=== PATIENT | female | born 1980 | race Caucasian/White ===

== ENCOUNTER 2018-09-01 19:28 | Emergency (ER) | payer BC, OTHER ==
[~2018-09-01] VITALS: Wt 83.7 kg
[~2018-09-01 19:28] MED LIST: WEIGHT LOSS MED
[2018-09-01] MEDS ORDERED: MED4DP PO (22:35)
[2018-09-01] MEDS ORDERED: NAPR-985 PO (22:35)
[2018-09-01] MEDS ORDERED: AMOX1TAB10 PO (22:35)
[2018-09-01] MEDS ORDERED: PSEU-79 PO (22:35)
[2018-09-01 22:48] VITALS: BP 126/81; PULSE 89; RESP 20
--- NOTE | 2018-09-02 00:42 | ERD ---
ER Documentation Chief Complaint Chief Complaint L SIDE FACIAL SWELLING X'S 2 DAYS/ DYSURIA X'S 2 DAYS HPI 37-year-old female presenting with left-sided facial swelling. Patient states is been going on for the last 2 days and she has some mild pressure with congestion over the sinuses. Patient is also experiencing some to the lymph nodes as well as some dental pain. Patient has not taken medications for symptoms. She denies any fevers. Denies other medical problems. NKDA. Surgical history: tubal ligation. Social history denies ROS All systems reviewed and are negative except as per history of present illness. Medications Home Meds Active Scripts Naproxen* (Naprosyn*) 500 Mg Tablet, 500 MG PO BID PRN for PAIN AND/OR INFLAMMATION, #30 TAB Prov:JAKUB SORENSEN PA-C 09/01/18 Pseudoephedrine Hcl* (Suphedrin*) 30 Mg Tablet, 30 MG PO Q6 PRN for CONGESTION, #30 TAB Prov:JAKUB SORENSEN PA-C 09/01/18 Methylprednisolone* (Medrol* DOSE PACK) 4 Mg/Dose-Pack Tab.ds.pk, 4 MG PO . DIRECTED, #1 PACKET Prov:JAKUB SORENSEN PA-C 09/01/18 Amoxicillin/Potassium Clav (Amox-Clav 875-125 mg Tablet) 875-125 mg Tab, 1 TAB PO BID for 7 Days, #14 TAB Prov:JAKUB SORENSEN PA-C 09/01/18 Reported Medications [Weight Loss Med] No Conflict Check 02/29/12 Allergies Allergies: Coded Allergies: No Known Allergy (Verified , 05/22/12) PMhx/Soc Medical and Surgical Hx: pt denies Medical Hx History of Surgery: Yes (Tubal Ligation) Anesthesia Reaction: No Hx Neurological Disorder: No Hx Respiratory Disorders: No Hx Cardiac Disorders: No Hx Psychiatric Problems: No Hx Miscellaneous Medical Probl: Yes (Fibroids) Hx Alcohol Use: Yes (Social) Hx Substance Use: No Hx Tobacco Use: No Smoking Status: Never smoker FmHx Family History: No diabetes, No coronary disease, No other Physical Exam Vitals Vital Signs Date Temp Pulse Resp B/P (MAP) Pulse Ox O2 O2 Flow FiO2 Time Delivery Rate 09/01/18 99.1 89 20 126/81 99 Room Air 22:48 (96) 09/01/18 98.0 104 18 134/82 98 19:31 (99) Physical Exam GENERAL: The patient is well-appearing, well-nourished, in no acute distress HEENT: Atraumatic. Conjunctivae are pink. Pupils equal, round, and reactive to light. There is no scleral icterus. Tympanic membranes clear bilaterally. Oropharynx clear. NECK: Mild cervical lymphadenopathy CHEST: Clear to auscultation bilaterally. There are no rales, wheezes or rhonchi. HEART: Regular rate and rhythm. No murmurs, clicks, rubs or gallops. No S3 or S4. SKIN: Swelling noted to the left cheek there is no erythema or fluctuance. Results 24 hrs Laboratory Tests Test 09/01/18 22:24 Bedside Urine pH (LAB) 6.5 Bedside Urine Protein (LAB) Negative Bedside Urine Glucose (UA) Negative Bedside Urine Ketones (LAB) Negative Bedside Urine Blood Trace-lysed Bedside Urine Nitrite (LAB) Negative Bedside Urine Leukocyte Esterase (L Negative Procedures/MDM MDM: 37-year-old female presenting with some swelling. Patient will be treated with antibiotics as I believe it may be sinusitis. I have low suspicion for meningitis or sepsis. Patient is discharged with supportive medications and told to follow-up with primary care within 1-2 days for close evaluation. Patient is told if symptoms change or worsen to immediately return to the ER. All questions answered at discharge Departure Diagnosis: Primary Impression: Swelling Condition: Stable Patient Instructions: Acute Sinusitis Referrals: PENDING SALE TO [facility] YOU HAVE RECEIVED A MEDICAL SCREENING EXAM AND THE RESULTS INDICATE THAT YOU DO NOT HAVE A CONDITION THAT REQUIRES URGENT TREATMENT IN THE EMERGENCY DEPARTMENT. FURTHER EVALUATION AND TREATMENT OF YOUR CONDITION CAN WAIT UNTIL YOU ARE SEEN IN YOUR DOCTORS OFFICE WITHIN THE NEXT 1-2 DAYS. IT IS YOUR RESPONSIBILITY TO MAKE AN APPOINTMENT FOR FOL-UP CARE. IF YOU HAVE A PRIMARY DOCTOR --you should call your primary doctor and schedule an appointment IF YOU DO NOT HAVE A PRIMARY DOCTOR YOU CAN CALL OUR PHYSICIAN REFERRAL HOTLINE AT IF YOU CAN NOT AFFORD TO SEE A PHYSICIAN YOU CAN CHOSE FROM THE FOLLOWING PENDING SALE TO [facility] [address] [facility]. [facility] [address] [facility] [facility] [address] [facility]. [facility] [address] [facility] [address] [facility]. [facility]. [address] Additional Instructions: FOLLOW UP WITH YOUR PRIMARY CARE PHYSICIAN TOMORROW.Return to this facility if you are not improving as expected. JAKUB SORENSEN PA-C Sep 02, 2018 00:42
== END 2018-09-01 22:55 | disposition home or self-care (01) ==
LOC: FTE 19:28
DX: R22.0 Localized swelling, mass and lump, head (principal)
CPT/HCPCS: 81003; Z7502; 99282